=== PATIENT | female | born 1950 | race Caucasian/White ===

== ENCOUNTER 2017-01-11 07:50 | Emergency (ER) | payer OTHER ==
[~2017-01-11] VITALS: Ht 162.5 cm; Wt 61.2 kg
[~2017-01-11 07:50] MED LIST: 'XANAX0.25 MG PO; ACCUNEB 0.1.25 MG/1 INH; ACCUNEB 0.1.25 MG/3 NEB; ACTONEL5 MG; ADVAIR DISKUS 51 DSK INH; ADVAIR DISKUS1 DS1 IH; AZITHROMYCIN250 MG PO; BENTYL10 MG PO; DUONEB 3 MG/3 ML3 M1 INH; HYDROCODONE BIT1 T11 PO; LASIX20 MG PO; LEVOFLOXACIN500 MG PO; LISINOPRIL5 MG PO; MACROBID100 M1 PO; MEDROL DOSEPAK4 MG PO; MOOD STABALIZER; NORCO 5-325 TA1 EACH PO; PERCOCET 325 MG1 TA2 PO; POTASSIUM99 M4 PO; PREDNICOT20 MG PO; PREDNISONE10 MG PO; PRILOSEC20 MG PO; TRAZODONE50 MG PO; XANAX0.25 MG PO; ZOFRAN4 MG PO
[2017-01-11 08:33] LABS: BASO # 0.1 10*3/uL (0.0-0.1); BASO % 0.5 % (0.0-1.0); EOS % 0.1 % (1.0-4.0); HEMATOCRIT 34.2 % (37.0-47.0); LYMPH % 10.1 % (27.0-41.0); MEAN CELL VOLUME 96.6 fl (81.0-99.0); MEAN CORPUSCULAR HGB 33.9 pg (27.0-31.0); MEAN CORPUSCULAR HGB CONC 35.1 g/dl (33.0-37.0); MEAN PLATELET VOLUME 9.2 fl (9.6-12.3); MONO % 10.3 % (3.0-9.0); NEUT # 7.5 10*3/uL (2.3-7.9); NEUT % 78.6 % (47.0-73.0); PLATELET COUNT AUTOMATED 291 10*3/uL (130-400); RED BLOOD COUNT 3.54 10*6/uL (4.10-5.10); RED CELL DISTRI WIDTH 12.5 % (0-14.5); WHITE BLOOD COUNT 9.5 10*3/uL (4.8-10.8)
[2017-01-11 08:49] LABS: ALKALINE PHOSPHATASE 72 U/L (45-117); BILIRUBIN, TOTAL 0.4 mg/dl (0.2-1.0); BUN 5 mg/dl (7-24); CARBON DIOXIDE 24 mmol/L (21-32); CHLORIDE 99 mmol/L (98-107); CKMB 2.1 ng/ml (0.5-3.6); EST GLOM FILT AFRICAN AMERICAN > 60 ml/min; GLUCOSE 82 mg/dL (65-99); SGOT/AST 26 IU/L (3-35); SGPT/ALT 22 U/L (12-78); SODIUM 134 mmol/L (136-145); TOTAL PROTEIN 7.7 gm/dL (6.4-8.2)
[2017-01-11 08:50] LABS: TROPONIN I < 0.015 ng/ml (<0.045)
[2017-01-11 08:51] LABS: CPK 97 U/L (26-192)
== END 2017-01-11 11:21 | disposition left against medical advice (07) ==
LOC: ED 07:50
PROVIDERS: Internal Medicine
DX: R55 Syncope and collapse (principal); Z88.2 Allergy status to sulfonamides; Z79.899 Other long term (current) drug therapy

== ENCOUNTER → 2017-05-24 | Day surgery (SDC) | payer OTHER ==
[~2017-05-24] VITALS: Ht 162.5 cm; Wt 61.2 kg
[~2017-05-24] MED LIST changes: +LAMOTRIGINE25 M1 PO
--- NOTE | ~2017-05-24 | PROC NOTE ---
[place], [place] PROCEDURE NOTE NAME: DENNIS ALARCON UNIT #: [id number] ROOM: DOCTOR: ADÁN MONTERO MD BIRTHDATE: [birth year] DOS: 05/24/2017 PREOPERATIVE DIAGNOSES: History of rectal cancer, history of colon polyps. POSTOPERATIVE DIAGNOSIS: Normal colon. PROCEDURE: Colonoscopy. ENDOSCOPIST: Adán Montero MD BAND CUTTING MACHINE OPERATOR: MS3. ANESTHESIA: MAC. INDICATIONS: This is a 66-year-old lady who has got a history of previous rectal cancer, which was treated with chemotherapy and radiation and also polyps that were removed in the past, who is here for the above-mentioned procedure. The procedure and its complications were explained to the patient in detail preoperatively. Complications that were discussed included but were not limited to bleeding, missed lesions and colon perforation. She agreed to proceed. DESCRIPTION OF PROCEDURE: After identifying the patient, the patient was brought to the endoscopy suite and placed in a left lateral position. After IV sedation was administered, a timeout procedure was called. A digital rectal exam was performed, which was within normal limits. An adult colonoscope was now introduced into the anal canal and advanced sequentially into the rectum, sigmoid colon, descending colon, transverse colon and ascending colon up to the cecum. Upon reaching the cecum, the scope was withdrawn. Total withdrawal time was approximately 6 minutes and 45 seconds. The entire colon was found to be within normal limits without any evidence of polyps and the rectal area also was visualized and there was no evidence of any kind of mucosal abnormality. The scope was withdrawn and the patient was taken to the recovery room in stable fashion. There were no complications. Dr. Adán Montero, the attending endoscopist, was present throughout the operating case. Based on these findings, the patient is recommended to have another colonoscopy in the next 3 years. [place], [place] PROCEDURE NOTE NAME: DENNIS ALARCON UNIT #: [id number] ROOM: DOCTOR: ADÁN MONTERO MD BIRTHDATE: [birth year] Adán Montero MD CM:PROCNOTE:PROCEDURE NOTE [id number] ADÁN MONTERO MD
[2017-05-24 07:50] VITALS: BP 138/72
[2017-05-24 08:48] VITALS: BP 112/59
[2017-05-24 09:03] VITALS: BP 97/60
[2017-05-24 09:18] VITALS: BP 114/80
== END | disposition home or self-care (01) ==
LOC: SDC 05-23 14:45
DX: Z09 Encounter for follow-up examination after completed treatment for conditions other than malignant neoplasm (principal); Z87.19 Personal history of other diseases of the digestive system; Z85.048 Personal history of other malignant neoplasm of rectum, rectosigmoid junction, and anus; J44.9 Chronic obstructive pulmonary disease, unspecified; Z98.890 Other specified postprocedural states; Z87.891 Personal history of nicotine dependence

== ENCOUNTER → 2017-10-09 | Outpatient (CLI) | payer OTHER | END | disposition home or self-care (01) | LOC: MAMMO 10:11 | DX: Z12.31 Encounter for screening mammogram for malignant neoplasm of breast (principal); M81.0 Age-related osteoporosis without current pathological fracture; N95.9 Unspecified menopausal and perimenopausal disorder; Z87.891 Personal history of nicotine dependence ==

== ENCOUNTER 2018-05-15 16:38 | Emergency (ER) | payer OTHER ==
[~2018-05-15] VITALS: Ht 162.5 cm; Wt 65.8 kg
[2018-05-15] MEDS ORDERED: Motrin,Rufen800 MG PO (18:57)
== END 2018-05-15 19:18 | disposition home or self-care (01) ==
LOC: ED 16:38
DX: M11.242 Other chondrocalcinosis, left hand (principal); Z88.2 Allergy status to sulfonamides; Z79.899 Other long term (current) drug therapy

== ENCOUNTER → 2019-04-01 | Outpatient (CLI) | payer OTHER ==
[~2019-04-01] MED LIST changes: +Motrin,Rufen800 MG PO
== END | disposition home or self-care (01) ==
LOC: MAMMO 09:56
DX: Z12.31 Encounter for screening mammogram for malignant neoplasm of breast (principal); M81.0 Age-related osteoporosis without current pathological fracture

== ENCOUNTER 2019-08-30 12:40 | Emergency (ER) | payer OTHER ==
[~2019-08-30] VITALS: Ht 162.5 cm; Wt 70.3 kg
[2019-08-30] MEDS ORDERED: MEDROL DOSEPAK4 MG PO (13:02)
== END 2019-08-30 13:09 | disposition home or self-care (01) ==
LOC: ED 12:40
DX: M54.41 Lumbago with sciatica, right side (principal); J44.9 Chronic obstructive pulmonary disease, unspecified; Z88.2 Allergy status to sulfonamides; Z79.899 Other long term (current) drug therapy

== ENCOUNTER 2019-09-12 10:56 | Inpatient (IN) | payer OTHER ==
[~2019-09-12] VITALS: Ht 162.5 cm; Wt 70.3 kg
[2019-09-12 10:59] VITALS: BP 138/63
--- NOTE | 2019-09-12 12:59 | NUR ---
PT REPORTS ZERO IMPROVEMENT IN PAIN SINCE MEDICATIONS ADMINISTERED.
--- NOTE | 2019-09-12 13:40 | NUR ---
PT NOW STATES SHE DOES THINK HER PAIN IS MUCH BETTER DESPITE NO SECOND MED DOSING. ADMISSION PENDING.
--- NOTE | 2019-09-12 14:12 | NUR ---
MSTime: 1400 A 69 year old FEMALE admitted to 5E under services of RYLIE GOFF DO. Pt. arrived via ambulance from ER. Chief complaint: LOW BACK PAIN. BARBARA ROSS
[2019-09-12 14:29] VITALS: BP 138/80
[2019-09-12] MEDS ORDERED: VITAMIN D31000 UNI1 PO (14:39)
[2019-09-12] MEDS ORDERED: METOPROLOL SUCC50 M1 PO (14:40)
[2019-09-12] MEDS ORDERED: WOMEN MULTIVIT1 EACH PO (14:41)
[2019-09-12] MEDS ORDERED: ANORO ELLIPTA1 EACH INH (14:42)
--- NOTE | 2019-09-12 15:00 | NUR ---
MEDS UPDATED PER POLICY
--- NOTE | 2019-09-12 15:04 | NUR ---
IN TO SEE PATIENT.
[2019-09-12 15:17] LABS: HEMATOCRIT 33.4 % (37.0-47.0); HEMOGLOBIN 11.2 g/dl (12.0-16.0); MEAN CELL VOLUME 103.1 fl (81.0-99.0); MEAN CORPUSCULAR HGB 34.6 pg (27.0-31.0); MEAN CORPUSCULAR HGB CONC 33.5 g/dl (33.0-37.0); MEAN PLATELET VOLUME 9.7 fl (9.6-12.3); PLATELET COUNT AUTOMATED 275 10*3/uL (130-400); RED BLOOD COUNT 3.24 10*6/uL (4.10-5.10); RED CELL DISTRI WIDTH 13.6 % (0-14.5); WHITE BLOOD COUNT 9.9 10*3/uL (4.8-10.8)
[2019-09-12 15:34] LABS: ALBUMIN 3.2 gm/dl (3.1-4.5); ALKALINE PHOSPHATASE 156 U/L (45-117); BUN 8 mg/dl (7-24); CHLORIDE 101 mmol/L (98-107); CREATININE 0.65 mg/dL (0.55-1.02); POTASSIUM 4.4 mmol/L (3.5-5.1); SGOT/AST 36 IU/L (3-35); SGPT/ALT 42 U/L (12-78); SODIUM 133 mmol/L (136-145); TOTAL PROTEIN 7.4 gm/dL (6.4-8.2)
[2019-09-12 15:38] LABS: PLATELET SUFFICIENCY NORMAL (NORMAL); TOTAL CELLS COUNTED 100 #CELLS; VACUOLATION OF NEUTROPHILS SLIGHT
[2019-09-12 16:00] VITALS: BP 135/76
--- NOTE | 2019-09-12 17:45 | NUR ---
PT GIVEN PO NORCO PER PRN ORDER FOR C/O LOWER BACK PAIN, RADIATING DOWN THIGHS. WILL MONITOR EFFECTIVENESS.
--- NOTE | 2019-09-12 19:16 | NUR ---
24 HR CHART CHECK COMPLETE
[2019-09-12 20:00] VITALS: BP 109/58
[2019-09-13] VITALS: BP 113/65
--- NOTE | 2019-09-13 03:30 | NUR ---
PT IS ASLEEP AT THIS TIME. NO S/S OF DISTRESS NOTED. RESPS ARE EASY AND NONLABORED. WILL CONTINUE TO MONITOR.
--- NOTE | 2019-09-13 05:28 | NUR ---
PT MEDICATED WITH PRN NORCO FOR C/O PAIN RATED A 5/10. WILL MONITOR FOR EFFECTIVESS.
[2019-09-13 06:25] LABS: HEMATOCRIT 32.3 % (37.0-47.0); HEMOGLOBIN 10.9 g/dl (12.0-16.0); MEAN CELL VOLUME 103.9 fl (81.0-99.0); MEAN CORPUSCULAR HGB CONC 33.7 g/dl (33.0-37.0); MEAN PLATELET VOLUME 9.7 fl (9.6-12.3); PLATELET COUNT AUTOMATED 283 10*3/uL (130-400); RED BLOOD COUNT 3.11 10*6/uL (4.10-5.10); RED CELL DISTRI WIDTH 13.8 % (0-14.5); WHITE BLOOD COUNT 11.7 10*3/uL (4.8-10.8)
[2019-09-13 06:53] LABS: ACT PARTIAL THROMBO TIME 32.2 SECONDS (20.0-32.1)
[2019-09-13 06:58] LABS: ALBUMIN 2.9 gm/dl (3.1-4.5); ALKALINE PHOSPHATASE 146 U/L (45-117); BUN 10 mg/dl (7-24); CHLORIDE 102 mmol/L (98-107); FREE T4 0.78 ng/dl (0.76-1.46); PHOSPHOROUS 2.6 mg/dL (2.5-4.9); POTASSIUM 3.8 mmol/L (3.5-5.1); SGOT/AST 26 IU/L (3-35); SGPT/ALT 35 U/L (12-78); SODIUM 133 mmol/L (136-145)
--- NOTE | 2019-09-13 07:00 | NUR ---
BRONSONCO EFFECTIVE PER PT. WILL CONTINUE TO MONITOR. CALL LIGHT WITHIN REACH.
[2019-09-13 07:05] LABS: TOTAL CELLS COUNTED 100 #CELLS
[2019-09-13 07:20] LABS: PLATELET SUFFICIENCY NORMAL (NORMAL); POLYCHROMASIA SLIGHT
[2019-09-13 08:00] VITALS: BP 115/51
--- NOTE | 2019-09-13 08:24 | NUR ---
NOTIFIED REGARDING PATIENT REQUESTING HOME MEDICATIONS TO BE ORDERED. PHYSICIAN TO ENTER ORDERS.
[2019-09-13 09:17] LABS: VITAMIN D, 25-HYDROXY 33.3 ng/mL (30-100)
[2019-09-13 12:00] VITALS: BP 111/40
[2019-09-13 16:00] VITALS: BP 112/50
--- NOTE | 2019-09-13 17:05 | NUR ---
NORCO GIVEN PER PRN ORDER FOR C/O SACRAL PAIN. RATES PAIN 5/10. WILL MONITOR EFFECTIVENESS.
--- NOTE | 2019-09-13 18:51 | NUR ---
NORCO RELIEVING PAIN PER PT. WILL CONTINUE TO MONITOR.
[2019-09-13 20:00] VITALS: BP 115/60
--- NOTE | 2019-09-13 21:47 | NUR ---
PT TOOK SCHEDULED MEDICATIONS WITHOUT DIFFICULTY. NO NEEDS VOICED AT THIS TIME. WILL MONITOR. CALL LIGHT IN REACH.
[2019-09-14] VITALS: BP 124/62
--- NOTE | 2019-09-14 04:17 | NUR ---
PT ASLEEP IN BED. RESPIRATIONS EASY. NO S/S OF DISTRESS NOTED. WILL MONITOR. CALL LIGHT IN REACH.
--- NOTE | 2019-09-14 07:50 | NUR ---
PT RESTING IN BED. NO DISTRESS NOTED. WILL MONITOR
[2019-09-14 08:00] VITALS: BP 128/71
--- NOTE | 2019-09-14 11:50 | NUR ---
Occupational Therapy evaluation completed on 5 with full eval to follow Precautions include fall risk,bilateral sacral fractures, cooney, osteoporosis,moderate complexity level 48641. Recommend OT per POC and SNF to enable return home to split level home w/5 steps to enter and 5 steps to patient's living area. Thank you. Madonna Cadena OTR/l
--- NOTE | 2019-09-14 12:25 | NUR ---
PT MEDICATED WITH NORCO FOR C/O GEBN PAIN PT RATES PAIN 02/23 WILL MONITOR
--- NOTE | 2019-09-14 12:37 | NUR ---
Surgical Clinical Reviewer in to talk to patient. Patient states lives at home with her . There are approximately 10 steps in the home. Physician: Marky Hanson Pharmacy: [facility] Home health services: None Patient's level of ADLs: INDEPENDENT Patient has working utilities: Yes DME: Home Oxygen, Walker (Husbands from [facility]) Follow-up physician's appointment after d/c: Will be made by Hospital Does patient want to access PORTAL?: No Discharge plan discussed with the patient. Patient stated she lives in a split home with her . Patient stated there are approximately 10 steps in her home. Patient stated that she is independent with ADLs/IADLs. Patient does drive. Patient reported she is not able get into her bath/shower therefore she sponge bathes herself. Patient stated she does wear home Oxygen at night time only. When the patient was asked about SNF vs HHC. Patient stated she will do whatever is recommended. Patient stated she [facility]ES NOT want [facility] Patient stated she would prefer [facility] or [facility]. [facility] is out of Network. Referral will be sent to [facility]. Surgical Clinical Reviewer Lindsey has been notified. Case Management to follow. EDY EDWARDS
--- NOTE | 2019-09-14 13:33 | NUR ---
PHYSICAL THERAPY Leslie completed full report to follow moderate level of complexity 74911 recomend SNF at discharge PT to work on transfers, marika quick AD, balance/safety Yesika Blue PT
--- NOTE | 2019-09-14 14:00 | NUR ---
RODRIGUEZ REMOVED ORDERED
--- NOTE | 2019-09-14 14:00 | NUR ---
[facility] WILL [facility]
--- NOTE | 2019-09-14 15:00 | NUR ---
AIR POLLUTION INSPECTOR faxed referral to [facility] and [facility] for review. [facility] is able to accept the patient, however, patient has Out of Network Benefits that would cover the same as in network. Complete referral was faxed to [facility]. -KAREY José
[2019-09-14 16:00] VITALS: BP 121/45
--- NOTE | 2019-09-14 17:00 | NUR ---
PT MEDICATED WITH NORCO FOR C/O GEN PAIN PT RATES PAIN 03/25 WILL MONITOR
--- NOTE | 2019-09-14 18:05 | NUR ---
[facility] HEL[facility] WILL MONITOR
--- NOTE | 2019-09-14 19:35 | NUR ---
PT AWAKE IN BED. DENIES ANY NEEDS AT PRESENT TIME. WILL MONITOR. CALL LIGHT IN REACH.
[2019-09-14 20:00] VITALS: BP 109/53
[2019-09-15] VITALS: BP 124/58
--- NOTE | 2019-09-15 00:22 | NUR ---
PT ASLEEP IN BED. RESPIRATIONS EASY. NO S/S OF DISTRESS NOTED. WILL MONITOR. CALL LIGHT IN REACH.
--- NOTE | 2019-09-15 02:14 | NUR ---
PT ASLEEP IN BED. NO S/S OF DISTRESS NOTED. WILL MONITOR.
--- NOTE | 2019-09-15 04:17 | NUR ---
PT ASSISTED UP TO BATHROOM AND BACK INTO BED. PATIENT MEDICATED WITH PO NORCO FOR C/O LOWER BACK/THIGH PAIN RATED 5/10. PATIENT ALSO MEDICATED WITH LAMICTAL SCHEDULED FOR 0600 PER REQUEST. STATES IF SHE FALLS ASLEEP, SHE DOES NOT WANT TO BE WOKEN UP. WILL MONITOR. CALL LIGHT IN REACH. BED ALARM INTACT.
[2019-09-15 08:00] VITALS: BP 142/70
--- NOTE | 2019-09-15 08:13 | NUR ---
PT REQUESTED AND RECEIVED PO NORCO PER PRN ORDER FOR C/O LOWER BACK PAIN. RATES PAIN 04/25. WILL MONITOR EFFECTIVENESS.
--- NOTE | 2019-09-15 09:30 | NUR ---
NORCO RELIEVING PAIN PER PT. WILL CONTINUE TO MONITOR.
--- NOTE | 2019-09-15 09:50 | NUR ---
OT NOTE Pt was seen this A.M. 1:1 for 15 minute OT session. Upon arrival pt was supine in bed. Pt identified by name and and had complaints of 8/10 low back pain. Pt was educated on log roll technique for good back protection with bed mobility. Pt was able to transfer supine to sit EOB with Hay for assist with UB and presented with good carry over of log roll. Pt completed sit to stand transfer from bed level with CGA and use of w/w for UE support. Functional mobility completed into the bathroom with CGA and use of w/w. There she transferred on/off standard commode with CGA and use of grab bar for UE support. Clothing management completed with SBA. Pt was educated on back protection techniques for toilet hygiene, pt verbalized understanding. She then stood sink side while washing her hands and completing hair care with CGA for safety. Pt then transferred back into bed sit to supine with SBA and good back protection, however required maxA X 2 for repositioning in bed due to pain. There she was left with call light in hand, tray table in place, and bed alarm activated for safety. COntinue with rec D/C plan to SNF. COLLIN Ng/Ivan
--- NOTE | 2019-09-15 10:05 | NUR ---
PHYSICAL THERAPY TREATMENT TIME: 09:35 AM - 09:50 AM Patient presented to therapy in supine with head of bed elevated and report of 8/10 pain in the low back and LEs. Patient identified by name and on wristband. Patient gives informed consent for treatment. Patient performed log roll to the L side and used railing of BED with R hand and L elbow to assist with sitting upright at EOB. Patient required MIN A X 1 to transfer from side-lying to sitting at EOB. Patient sat on EOB with SBA. Patient sit to stand from EOB with MIN A X 1. Patient ambulated 50' x 1 with Wh Walker and CGA X 1 with no LOB and good turning technique. Patient transferred back to supine in bed with SBA. Patient required draw sheet to move her up to head of bed with MAX A X 2. Patient was left in supine in bed with head of bed elevated and call light within reach. Bed alarm was activated. Patient was 1:1 with this BDR for 15 minutes total. FIONA HERNANDEZ BDR
--- NOTE | 2019-09-15 11:46 | NUR ---
PRECERT is pending. PEN MAKER faxed updates to [facility]. -KAREY José
[2019-09-15 12:00] VITALS: BP 117/64
--- NOTE | 2019-09-15 12:52 | NUR ---
PATIENT REQUESTING MEDICATION FOR HIP AND BACK PAIN RATED 9/10 ON 0/10 SCALE. NORCO ADMINISTERED PRESCRIBED. WILL MONITOR FOR EFFECTIVENESS.
--- NOTE | 2019-09-15 13:20 | NUR ---
PRECERT is Pending. -KAREY José
--- NOTE | 2019-09-15 14:00 | NUR ---
NORCO RELIEVING PAIN PER PT. WILL CONTINUE TO MONITOR.
[2019-09-15 16:00] VITALS: BP 120/54
--- NOTE | 2019-09-15 17:22 | NUR ---
PT MEDICATED WITH PO NORCO PER PRN ORDER FOR C/O LOWER BACK PAIN. WILL MONITOR EFFECTIVENESS.
[2019-09-15 20:00] VITALS: BP 113/83
--- NOTE | 2019-09-15 21:03 | NUR ---
PT DENIES ANY NEEDS AT PRESENT TIME. WILL MONITOR. CALL LIGHT IN REACH. BED ALARM INTACT.
--- NOTE | 2019-09-15 22:28 | NUR ---
PO NORCO AND PO RESTORIL ADMINISTERED PER REQUEST FOR C/O THROBBING PAIN IN BLL RATED 9/10 AND INSOMNIA. WILL MONITOR EFFECTIVENESS. CALL LIGHT IN REACH.
[2019-09-16] VITALS: BP 116/50
--- NOTE | 2019-09-16 04:07 | NUR ---
PT ASLEEP IN BED. RESPIRATIONS EASY. NO S/S OF DISTRESS NOTED. WILL MONITOR. CALL LIGHT IN REACH. BED ALARM INTACT.
--- NOTE | 2019-09-16 05:37 | NUR ---
PT MEDICATED WITH PO NORCO PER PRN ORDER FOR C/O BACK/HIP PAIN RATED 8/10. PT ASSISTED UP TO BATHROOM AND BACK INTO BED. ASSISTED TO REPOSITION FOR COMFORT. WILL MONITOR. CALL LIGHT IN REACH. BED ALARM INTACT.
[2019-09-16 06:01] LABS: BASO # 0.1 10*3/uL (0.0-0.1); BASO % 0.8 % (0.0-1.0); EOS # 0.1 10*3/uL (0.0-0.4); HEMATOCRIT 31.5 % (37.0-47.0); HEMOGLOBIN 10.4 g/dl (12.0-16.0); LYMPH # 1.3 10*3/uL (1.3-4.4); LYMPH % 19.4 % (27.0-41.0); MEAN CELL VOLUME 106.1 fl (81.0-99.0); MEAN PLATELET VOLUME 9.5 fl (9.6-12.3); MONO # 0.9 10*3/uL (0.1-1.0); MONO % 13.8 % (3.0-9.0); NEUT # 4.2 10*3/uL (2.3-7.9); NEUT % 63.4 % (47.0-73.0); PLATELET COUNT AUTOMATED 276 10*3/uL (130-400); RED BLOOD COUNT 2.97 10*6/uL (4.10-5.10); RED CELL DISTRI WIDTH 14.1 % (0-14.5); WHITE BLOOD COUNT 6.6 10*3/uL (4.8-10.8)
[2019-09-16 06:15] LABS: BUN 8 mg/dl (7-24); CHLORIDE 104 mmol/L (98-107); CREATININE 0.55 mg/dL (0.55-1.02); POTASSIUM 3.9 mmol/L (3.5-5.1); SODIUM 138 mmol/L (136-145)
--- NOTE | 2019-09-16 07:15 | NUR ---
EARLIER MEDICATION APPEARS EFFECTIVE. PT ASLEEP. WILL MONITOR. CALL LIGHT IN REACH. BED ALARM INTACT.
[2019-09-16 08:00] VITALS: BP 122/64
--- NOTE | 2019-09-16 08:16 | NUR ---
PT RESTING IN BED. NO DISTRESS NOTED. WILL MONITOR
--- NOTE | 2019-09-16 09:53 | NUR ---
PT REQUESTED AND GIVEN NORCO FOR C/O. BACK PAIN . PT RATES PAIN 7/10 WILL MONITOR
--- NOTE | 2019-09-16 10:44 | NUR ---
PHYSICAL THERAPY TREATMENT TIME: 08:50 AM - 09:05 Patient presented to therapy in supine with head of bed elevated and report of L LE PAIN in wt bearing of 8/10. Patient gives informed consent for treatment. Patient was identified by name and on wristband. Patient performed log rolling to the L side with MIN A X 1. Patient transferred L SIDE-LYING to sitting at EOB with MIN A X 1. Patient sat on EOB with SBA. Patient sit to stand from EOB with MIN A X 1. Patient ambulated with Wh Walker and CLOSE SUPERVISION for 50' x 1 with no LOB and 8/10 pain in the L LE. Patient transferred back to supine in bed MIN A X 1 with log rolling to supine. Patient is not on spO2. Patient was left in supine in bed with head of bed elevated, call light within reach and bed alarm activated. Patient was 1:1 with this NURSING HOME AIDE for 15 minutes total. FIONA HERNANDEZ NURSING HOME AIDE
--- NOTE | 2019-09-16 10:46 | NUR ---
ADELE HELPED PER PT
[2019-09-16 12:00] VITALS: BP 129/69
--- NOTE | 2019-09-16 14:52 | NUR ---
PT REQUESTED AND GIVEN NORCO FOR C/O LEG PAIN PT RATES PAIN 8/10 WILL MONITOR
[2019-09-16 16:00] VITALS: BP 137/71
--- NOTE | 2019-09-16 16:35 | NUR ---
NORCO HELPED PER PT WILL MONITOR
[2019-09-16 20:00] VITALS: BP 154/81
--- NOTE | 2019-09-16 20:10 | NUR ---
PT RESTING IN BED. RESP-EASY AND REGULAR. C/O BILATERAL LEG PAIN L>R , RATES PAIN 8 ON PAIN SCALE 0-10. MEDICATED WITH NORCO PO PER PRN ORDER, SEE EMAR. CALL LIGHT IN REACH. WILL CON'T TO MONITOR.
--- NOTE | 2019-09-16 21:56 | NUR ---
PT TOLERATED ROUTINE MED WITH NO PROBLEM. REQUESTING SLEEPING PILL. MEDICATED WITH RESTORIL PO PER PRN ORDER, SEE EMAR. PT STATES PAIN MEDICATION HELPED. CALL LIGHT IN REACH.
[2019-09-17] VITALS: BP 135/71
--- NOTE | 2019-09-17 00:10 | NUR ---
PT RESTING IN BED WITH EYES CLOSED. RESP-EASY AND REGULAR. CALL LIGHT IN REACH. SEE SHIFT ASSESSMENT.
--- NOTE | 2019-09-17 04:50 | NUR ---
PT C/O BILATERAL LEG PAIN L>R, RATES PAIN 5 ON PAIN SCALE 0-10. MEDICATED WITH NORCO PO PER PRN ORDER, SEE EMAR. CALL LIGHT IN REACH.
--- NOTE | 2019-09-17 05:45 | NUR ---
RESTING IN BED WITH EYES CLOSED. RESP-EASY AND REGULAR. MEDICATION SEEMS TO BE EFFECTIVE. CALL LIGHT IN REACH.
--- NOTE | 2019-09-17 07:56 | NUR ---
PRECERT has been obtained. Patient can go to [facility] today if medically stable. FENDER FINISHER to notify RN Hosptialist Coordinator Dia. -KAREY José
[2019-09-17 08:00] VITALS: BP 140/81
--- NOTE | 2019-09-17 08:27 | NUR ---
PT RESTING IN BED. NO DISTRESS NOTED. WILL MONITOR
--- NOTE | 2019-09-17 08:40 | NUR ---
Approached patient for OT services this am but pt declined due to "pain & not feeling well". Will attempt OT another time or date. Call light was within reach. Continue with OT POC. Jenny SINGLETON/Ivan
--- NOTE | 2019-09-17 08:51 | NUR ---
PHYSICAL THERAPY Patient declined therapy session this morning due ot not feeling well and having severe pain in the L LE. NURSING INFORMED. Will check back later. FIONA HERNANDEZ FEED IN WORKER
--- NOTE | 2019-09-17 09:03 | NUR ---
PT REQUESTED AND GIVEN NORCO FOR C/O BILATERAL LEG PAIN AND BACK PAIN PT RATES PAIN 04/25 WILL MONITOR
--- NOTE | 2019-09-17 10:30 | NUR ---
[facility]
--- NOTE | 2019-09-17 10:40 | NUR ---
TURNER SPLITTER MACHINE OPERATOR completed HENs. -KAREY José
[2019-09-17] MEDS ORDERED: Nystatin 100,000 UNI PO (12:25)
[2019-09-17] MEDS ORDERED: INCRUSE ELLI62.5 MCG INH (12:25)
[2019-09-17] MEDS ORDERED: NORCO 5-325 TA1 EACH PO (12:25)
[2019-09-17] MEDS ORDERED: CALCIUM 600 +1 EA11 PO (12:25)
--- NOTE | 2019-09-17 13:11 | NUR ---
PT REQUESTED AND GIVEN NORCO FOR C/O LEG AND BACK PAIN WILL MONITOR
--- NOTE | 2019-09-17 14:35 | NUR ---
Discharge instructions reviewed with patient/family. Patient receptive and verbalizes understanding. Follow-up care arranged. Written instructions given to patient/family. OTILIA WONG
--- NOTE | 2019-09-17 14:35 | NUR ---
REPORT CALLED TO [facility]
--- NOTE | 2019-09-17 16:53 | NUR ---
OCCUPATIONAL THERAPY CO-SIGN I approve of the Occupational Therapy notes written above. OPAL LLOYD OTR/Ivan
--- NOTE | 2019-09-18 08:00 | NUR ---
PHYSICAL THERAPY CO-SIGN I approve of the Physical Therapy notes written above. Yesika Blue PT
== END 2019-09-17 14:35 | disposition other institution (70) | DRG 543 ==
LOC: ED 10:56 → EDHOLD 13:37 → 5E 13:37
PROVIDERS: Hospitalist; Student in an Organized Health Care Education/Training Program; ADMIT Internal Medicine
DX: M80.08XA Age-related osteoporosis with current pathological fracture, vertebra(e), initial encounter for fracture (principal); J44.1 Chronic obstructive pulmonary disease with (acute) exacerbation; E87.1 Hypo-osmolality and hyponatremia; B37.0 Candidal stomatitis; J44.0 Chronic obstructive pulmonary disease with (acute) lower respiratory infection; M54.41 Lumbago with sciatica, right side; K13.0 Diseases of lips; G89.29 Other chronic pain; J20.9 Acute bronchitis, unspecified; D53.9 Nutritional anemia, unspecified; Z85.048 Personal history of other malignant neoplasm of rectum, rectosigmoid junction, and anus; Z92.3 Personal history of irradiation; Z92.21 Personal history of antineoplastic chemotherapy; Z83.6 Family history of other diseases of the respiratory system; Z82.49 Family history of ischemic heart disease and other diseases of the circulatory system; Z79.899 Other long term (current) drug therapy

== ENCOUNTER → 2019-12-29 | Outpatient (CLI) | payer OTHER ==
[~2019-12-29] MED LIST changes: +ANORO ELLIPTA1 EACH INH; +CALCIUM 600 +1 EA11 PO; +INCRUSE ELLI62.5 MCG INH; +METOPROLOL SUCC50 M1 PO; +Nystatin 100,000 UNI PO; +VITAMIN D31000 UNI1 PO; +WOMEN MULTIVIT1 EACH PO
== END | disposition home or self-care (01) ==
LOC: RAD 14:11
DX: M47.812 Spondylosis without myelopathy or radiculopathy, cervical region (principal); M48.061 Spinal stenosis, lumbar region without neurogenic claudication; M43.16 Spondylolisthesis, lumbar region; M48.02 Spinal stenosis, cervical region; M46.02 Spinal enthesopathy, cervical region; R29.2 Abnormal reflex; I70.0 Atherosclerosis of aorta

== ENCOUNTER → 2020-06-21 | Outpatient (CLI) | payer OTHER ==
[2020-06-21 09:50] VITALS: BP 132/71
== END | disposition home or self-care (01) ==
LOC: INJECTION 09:00
PROVIDERS: ATTEND Physician Assistant
DX: M81.0 Age-related osteoporosis without current pathological fracture (principal); J44.9 Chronic obstructive pulmonary disease, unspecified; Z85.048 Personal history of other malignant neoplasm of rectum, rectosigmoid junction, and anus; Z87.891 Personal history of nicotine dependence

== ENCOUNTER 2020-12-25 05:04 | Inpatient (IN) | payer OTHER ==
[2020-12-25] VITALS (13 sets, daily range): BP systolic 82–157; BP diastolic 48–113
[~2020-12-25] VITALS: Ht 160 cm; Wt 67.8 kg
[2020-12-25 05:53] LABS: ALBUMIN 2.5 gm/dl (3.1-4.5); BUN 15 mg/dl (7-24); CHLORIDE 100 mmol/L (98-107); CREATININE 0.76 mg/dL (0.55-1.02); POTASSIUM 3.3 mmol/L (3.5-5.1); SGOT/AST 34 IU/L (3-35); SGPT/ALT 26 U/L (12-78); SODIUM 130 mmol/L (136-145); TOTAL PROTEIN 7.1 gm/dL (6.4-8.2)
[2020-12-25 05:55] LABS: BASO % 0.4 % (0.0-1.0); EOS # 0.1 10*3/uL (0.0-0.4); EOS % 0.7 % (1.0-4.0); HEMATOCRIT 33.7 % (37.0-47.0); LYMPH # 0.5 10*3/uL (1.3-4.4); MEAN CELL VOLUME 102.1 fl (81.0-99.0); MEAN CORPUSCULAR HGB 34.5 pg (27.0-31.0); MEAN CORPUSCULAR HGB CONC 33.8 g/dl (33.0-37.0); MEAN PLATELET VOLUME 9.8 fl (9.6-12.3); MONO # 0.9 10*3/uL (0.1-1.0); MONO % 8.3 % (3.0-9.0); NEUT % 84.5 % (47.0-73.0); PLATELET COUNT AUTOMATED 225 10*3/uL (130-400); RED CELL DISTRI WIDTH 13.1 % (0-14.5); WHITE BLOOD COUNT 10.7 10*3/uL (4.8-10.8)
[2020-12-25 05:56] LABS: ALKALINE PHOSPHATASE 128 U/L (45-117)
[2020-12-25 06:00] LABS: TROPONIN I < 0.015 ng/ml (<0.045)
[2020-12-25 06:11] LABS: ACT PARTIAL THROMBO TIME 39.2 SECONDS (20.0-32.1); INTERNATIONAL NORM RATIO 1.1 (2.0-3.5)
[2020-12-25 08:12] LABS: FREE T4 0.98 ng/dl (0.76-1.46)
[2020-12-25 08:17] LABS: THYROID STIM HORMONE (HS) 3.15 uIU/ml (0.358-4.75)
[2020-12-25] MEDS ORDERED: LEVOTHYROXINE25 MCG PO (10:28)
[2020-12-25] MEDS ORDERED: MACROBID100 M1 PO (10:29)
[2020-12-25 16:53] LABS: BILIRUBIN Negative (Negative); BLOOD Negative (Negative); CLARITY Clear (Clear); COLOR Yellow (Yellow); GLUCOSE Negative (Negative); KETONE Negative (Negative); LEUKO ESTERASE 1+ (Negative); NITRITE Negative (Negative); PH 5.5 (4.5-8.0); UROBILINOGEN 0.2 E.U./dl (0.0-1.0)
[2020-12-25 17:30] LABS: RBC 0-2 rbc/hpf (0-2)
[2020-12-25 17:31] LABS: BACTERIA TRACE
[2020-12-26] VITALS: BP 103/56
[2020-12-26 07:28] LABS: HEMATOCRIT 33.8 % (37.0-47.0); LYMPH # 0.7 10*3/uL (1.3-4.4); LYMPH % 15.7 % (27.0-41.0); MEAN CELL VOLUME 103.7 fl (81.0-99.0); MEAN CORPUSCULAR HGB CONC 32.8 g/dl (33.0-37.0); MEAN PLATELET VOLUME 9.6 fl (9.6-12.3); MONO # 0.1 10*3/uL (0.1-1.0); MONO % 2.6 % (3.0-9.0); NEUT # 3.7 10*3/uL (2.3-7.9); NEUT % 81.3 % (47.0-73.0); PLATELET COUNT AUTOMATED 277 10*3/uL (130-400); RED BLOOD COUNT 3.26 10*6/uL (4.10-5.10); RED CELL DISTRI WIDTH 13.2 % (0-14.5); WHITE BLOOD COUNT 4.6 10*3/uL (4.8-10.8)
[2020-12-26 07:53] LABS: ALBUMIN 2.6 gm/dl (3.1-4.5); ALKALINE PHOSPHATASE 115 U/L (45-117); BUN 14 mg/dl (7-24); CHLORIDE 101 mmol/L (98-107); CHOLESTEROL 127 mg/dL (<200); CREATININE 0.74 mg/dL (0.55-1.02); HDL CHOLESTEROL 78 mg/dl (40-60); LDL CHOLESTEROL 37 mg/dL (9-159); SGOT/AST 18 IU/L (3-35); SGPT/ALT 23 U/L (12-78); SODIUM 135 mmol/L (136-145); TOTAL PROTEIN 7.2 gm/dL (6.4-8.2); TRIGLYCERIDES 62 mg/dl (<150); VLDL CHOLESTEROL 12 mg/dL (6-40)
[2020-12-26 12:00] VITALS: BP 122/69
[2020-12-26 16:00] VITALS: BP 111/64
[2020-12-26 20:00] VITALS: BP 119/74
[2020-12-27] VITALS: BP 139/73
[2020-12-27 08:00] VITALS: BP 121/72
[2020-12-27] MEDS ORDERED: VENTOLIN 02.5 MG/3 M NEB (09:51)
[2020-12-27 12:00] VITALS: BP 112/64
[2020-12-27] MEDS ORDERED: OMNICEF300 MG PO (13:49)
[2020-12-27] MEDS ORDERED: ZITHROMAX500 MG PO (13:49)
[2020-12-27] MEDS ORDERED: XARE20MG PO (13:50)
[2020-12-27] MEDS ORDERED: FLECAINIDE ACE100 M1 PO (13:50)
[2020-12-27] MEDS ORDERED: PREDNISONE10 MG PO (16:23)
== END 2020-12-27 14:47 | disposition home or self-care (01) | DRG 871 ==
LOC: ED 05:04 → EDHOLD 06:31 → 4E 06:31 → EDHOLD 07:49 → 4E 08:56
PROVIDERS: Emergency Medicine; Internal Medicine; ADMIT Internal Medicine; ATTEND Internal Medicine
DX: A41.9 Sepsis, unspecified organism (principal); J96.21 Acute and chronic respiratory failure with hypoxia; E87.1 Hypo-osmolality and hyponatremia; E44.0 Moderate protein-calorie malnutrition; J44.1 Chronic obstructive pulmonary disease with (acute) exacerbation; I48.91 Unspecified atrial fibrillation; D53.9 Nutritional anemia, unspecified; E03.9 Hypothyroidism, unspecified; E87.6 Hypokalemia; R73.9 Hyperglycemia, unspecified; R65.20 Severe sepsis without septic shock; I10 Essential (primary) hypertension; E86.0 Dehydration; M81.0 Age-related osteoporosis without current pathological fracture; I34.0 Nonrheumatic mitral (valve) insufficiency; Z88.2 Allergy status to sulfonamides; Z92.21 Personal history of antineoplastic chemotherapy; Z92.3 Personal history of irradiation; Z85.048 Personal history of other malignant neoplasm of rectum, rectosigmoid junction, and anus; Z82.5 Family history of asthma and other chronic lower respiratory diseases; Z82.49 Family history of ischemic heart disease and other diseases of the circulatory system; Z79.899 Other long term (current) drug therapy; Z68.26 Body mass index [BMI] 26.0-26.9, adult

== ENCOUNTER → 2021-01-27 | Outpatient (CLI) | payer OTHER ==
[~2021-01-27] MED LIST changes: +FLECAINIDE ACE100 M1 PO; +LEVOTHYROXINE25 MCG PO; +OMNICEF300 MG PO; +VENTOLIN 02.5 MG/3 M NEB; +XARE20MG PO; +ZITHROMAX500 MG PO
== END ==
LOC: CT 01-26 09:00
PROVIDERS: ATTEND Nurse Practitioner Primary Care
DX: J43.9 Emphysema, unspecified (principal); R59.9 Enlarged lymph nodes, unspecified; R91.8 Other nonspecific abnormal finding of lung field; J42 Unspecified chronic bronchitis; R06.02 Shortness of breath

== ENCOUNTER → 2021-01-31 | Outpatient (CLI) | payer OTHER ==
[2021-01-31 12:11] VITALS: BP 149/59
== END | disposition home or self-care (01) ==
LOC: INJECTION 01-23 09:00
PROVIDERS: ATTEND Nurse Practitioner Primary Care
DX: M81.0 Age-related osteoporosis without current pathological fracture (principal); J44.9 Chronic obstructive pulmonary disease, unspecified; Z85.048 Personal history of other malignant neoplasm of rectum, rectosigmoid junction, and anus; Z87.891 Personal history of nicotine dependence

== ENCOUNTER → 2021-07-12 | Outpatient (CLI) | payer OTHER | END | disposition home or self-care (01) | LOC: RAD 06-12 10:30 | PROVIDERS: ATTEND Nurse Practitioner Primary Care | DX: Z12.31 Encounter for screening mammogram for malignant neoplasm of breast (principal); M81.0 Age-related osteoporosis without current pathological fracture ==

== ENCOUNTER → 2021-08-15 | Outpatient (CLI) | payer OTHER | END | disposition home or self-care (01) | LOC: MAMMO 14:13 | PROVIDERS: ATTEND Nurse Practitioner Primary Care | DX: R92.1 Mammographic calcification found on diagnostic imaging of breast (principal); R59.0 Localized enlarged lymph nodes ==

== ENCOUNTER 2022-04-03 13:11 | Inpatient (IN) | payer OTHER ==
[~2022-04-03] VITALS: Ht 157.5 cm; Wt 62.1 kg
[2022-04-03] VITALS (7 sets, daily range): BP systolic 92–134; BP diastolic 35–76
[2022-04-03 14:27] LABS: ACT PARTIAL THROMBO TIME 68.1 SECONDS (20.0-32.1)
[2022-04-03 14:29] LABS: CREATININE 3.32 mg/dL (0.55-1.02); TOTAL PROTEIN 6.3 gm/dL (6.4-8.2)
[2022-04-03 14:37] LABS: POTASSIUM 2.1 mmol/L (3.5-5.1)
[2022-04-03 14:39] LABS: INTERNATIONAL NORM RATIO > 9.6 (2.0-3.5)
[2022-04-03 15:31] LABS: HEMATOCRIT 27.2 % (37.0-47.0); MEAN CELL VOLUME 97.8 fl (81.0-99.0); MEAN CORPUSCULAR HGB 34.2 pg (27.0-31.0); MEAN CORPUSCULAR HGB CONC 34.9 g/dl (33.0-37.0); MEAN PLATELET VOLUME 9.6 fl (9.6-12.3); PLATELET COUNT AUTOMATED 32 10*3/uL (130-400); RED BLOOD COUNT 2.78 10*6/uL (4.10-5.10)
[2022-04-03 15:47] LABS: MANUAL DIFF REFLEX YES
[2022-04-03] MEDS ORDERED: VIBRAMYCIN100 MG PO (16:16)
[2022-04-03] MEDS ORDERED: TRELEGY ELLIPT1 EACH IH (16:16)
[2022-04-03] MEDS ORDERED: PROCHLORPERAZIN10 MG PO (16:16)
[2022-04-03] MEDS ORDERED: LEVOTHYROXINE50 MCG PO (16:17)
[2022-04-03 16:51] LABS: DOHLE BODIES MODERATE; PLATELET SUFFICIENCY LOW (NORMAL); POLYCHROMASIA SLIGHT; ROULEAUX SLIGHT; TOTAL CELLS COUNTED 100 #CELLS; TOXIC GRANULATION MODERATE
[2022-04-03 19:55] LABS: BILIRUBIN Negative (Negative); BLOOD Negative (Negative); CLARITY Turbid (Clear); COLOR Dark Yellow (Yellow); GLUCOSE Negative (Negative); KETONE Trace (Negative); LEUKO ESTERASE Trace (Negative); NITRITE Negative (Negative); SPECIFIC GRAVITY 1.015 (1.001-1.030)
[2022-04-03 20:00] LABS: CREATININE 3.08 mg/dL (0.55-1.02); POTASSIUM 2.5 mmol/L (3.5-5.1)
[2022-04-03 20:55] LABS: BACTERIA 1+; YEAST 1+
[2022-04-03] MEDS ORDERED: XARELTO20 M1 PO (22:32)
[2022-04-04] VITALS: BP 103/66
[2022-04-04 05:38] LABS: CREATININE 2.71 mg/dL (0.55-1.02); TOTAL PROTEIN 5.6 gm/dL (6.4-8.2)
[2022-04-04 05:42] LABS: FREE T4 1.45 ng/dl (0.76-1.46); THYROID STIM HORMONE (HS) 1.24 uIU/ml (0.358-4.75)
[2022-04-04 06:24] LABS: HEMATOCRIT 25.6 % (37.0-47.0); MEAN CELL VOLUME 98.1 fl (81.0-99.0); MEAN CORPUSCULAR HGB 34.1 pg (27.0-31.0); MEAN CORPUSCULAR HGB CONC 34.8 g/dl (33.0-37.0); RED BLOOD COUNT 2.61 10*6/uL (4.10-5.10)
[2022-04-04 06:30] LABS: MANUAL DIFF REFLEX YES
[2022-04-04 06:32] LABS: PLATELET COUNT AUTOMATED 23 10*3/uL (130-400)
[2022-04-04 06:36] LABS: INTERNATIONAL NORM RATIO 7.2 (2.0-3.5)
[2022-04-04 07:49] LABS: BASOPHILS 2 % (0-1); TOTAL CELLS COUNTED 100 #CELLS
[2022-04-04 07:50] LABS: BURR CELLS FEW; DOHLE BODIES FEW; PLATELET SUFFICIENCY LOW (NORMAL); POLYCHROMASIA SLIGHT; TOXIC GRANULATION MODERATE
[2022-04-04 08:00] VITALS: BP 91/45
[2022-04-04 12:00] VITALS: BP 107/63
[2022-04-04 16:00] VITALS: BP 106/60
[2022-04-04 20:00] VITALS: BP 92/35
[2022-04-04 22:20] VITALS: BP 90/67
[2022-04-05] VITALS (9 sets, daily range): BP systolic 90–126; BP diastolic 55–71
[2022-04-05 06:09] LABS: CREATININE 2.24 mg/dL (0.55-1.02); POTASSIUM 3.2 mmol/L (3.5-5.1)
[2022-04-05 06:21] LABS: HEMATOCRIT 25.6 % (37.0-47.0); MEAN CORPUSCULAR HGB 34.9 pg (27.0-31.0); MEAN CORPUSCULAR HGB CONC 34.4 g/dl (33.0-37.0); MEAN PLATELET VOLUME 10.6 fl (9.6-12.3); RED BLOOD COUNT 2.52 10*6/uL (4.10-5.10)
[2022-04-05 06:25] LABS: MANUAL DIFF REFLEX YES
[2022-04-05 06:30] LABS: MEAN CELL VOLUME 101.6 fl (81.0-99.0); PLATELET COUNT AUTOMATED 18 10*3/uL (130-400); WHITE BLOOD COUNT 1.9 10*3/uL (4.8-10.8)
[2022-04-05 07:48] LABS: BASOPHILS 1 % (0-1); BURR CELLS FEW; PLATELET SUFFICIENCY LOW (NORMAL); POLYCHROMASIA SLIGHT; SCHISTOCYTES FEW; TOTAL CELLS COUNTED 100 #CELLS; TOXIC GRANULATION SLIGHT
[2022-04-06] VITALS: BP 114/81
[2022-04-06 04:59] LABS: CREATININE 1.92 mg/dL (0.55-1.02); POTASSIUM 3.2 mmol/L (3.5-5.1)
[2022-04-06 06:10] LABS: HEMATOCRIT 24.2 % (37.0-47.0); MEAN CELL VOLUME 101.3 fl (81.0-99.0); MEAN CORPUSCULAR HGB 34.3 pg (27.0-31.0); MEAN CORPUSCULAR HGB CONC 33.9 g/dl (33.0-37.0); MEAN PLATELET VOLUME 10.1 fl (9.6-12.3); RED BLOOD COUNT 2.39 10*6/uL (4.10-5.10)
[2022-04-06 06:19] LABS: PLATELET COUNT AUTOMATED 48 10*3/uL (130-400)
[2022-04-06 06:21] LABS: WHITE BLOOD COUNT 1.7 10*3/uL (4.8-10.8)
[2022-04-06 06:22] LABS: MANUAL DIFF REFLEX YES
[2022-04-06 07:08] LABS: BASOPHILS 1 % (0-1); PLATELET SUFFICIENCY LOW (NORMAL); TOTAL CELLS COUNTED 100 #CELLS
[2022-04-06 08:00] VITALS: BP 90/57
[2022-04-06 10:23] LABS: INTERNATIONAL NORM RATIO > 9.6 (2.0-3.5)
[2022-04-06 12:30] VITALS: BP 85/51
[2022-04-06 16:00] VITALS: BP 94/60
[2022-04-06 20:00] VITALS: BP 95/61
[2022-04-07] VITALS: BP 143/57
[2022-04-07 04:00] VITALS: BP 100/58
[2022-04-07 06:18] LABS: HEMATOCRIT 24.9 % (37.0-47.0); MEAN CELL VOLUME 101.6 fl (81.0-99.0); MEAN CORPUSCULAR HGB 33.9 pg (27.0-31.0); MEAN CORPUSCULAR HGB CONC 33.3 g/dl (33.0-37.0); MEAN PLATELET VOLUME 10.2 fl (9.6-12.3); PLATELET COUNT AUTOMATED 43 10*3/uL (130-400); RED BLOOD COUNT 2.45 10*6/uL (4.10-5.10); WHITE BLOOD COUNT 3.4 10*3/uL (4.8-10.8)
[2022-04-07 06:20] LABS: CREATININE 1.73 mg/dL (0.55-1.02); MANUAL DIFF REFLEX YES; POTASSIUM 3.8 mmol/L (3.5-5.1); TOTAL PROTEIN 5.5 gm/dL (6.4-8.2)
[2022-04-07 06:30] LABS: INTERNATIONAL NORM RATIO > 9.6 (2.0-3.5)
[2022-04-07 07:04] LABS: ATYPICAL LYMPHS 1 % (0-0); TOTAL CELLS COUNTED 100 #CELLS
[2022-04-07 07:05] LABS: BURR CELLS FEW; PLATELET SUFFICIENCY LOW (NORMAL); POLYCHROMASIA SLIGHT
[2022-04-07 07:06] LABS: DOHLE BODIES FEW; TOXIC GRANULATION MODERATE
[2022-04-07 08:00] VITALS: BP 91/49
[2022-04-07 12:00] VITALS: BP 119/64
[2022-04-07 16:00] VITALS: BP 106/95
[2022-04-07 20:00] VITALS: BP 104/62
[2022-04-08] VITALS: BP 111/63
[2022-04-08 06:05] LABS: HEMATOCRIT 24.9 % (37.0-47.0); MEAN CELL VOLUME 104.6 fl (81.0-99.0); MEAN CORPUSCULAR HGB 34.5 pg (27.0-31.0); MEAN CORPUSCULAR HGB CONC 32.9 g/dl (33.0-37.0); MEAN PLATELET VOLUME 10.2 fl (9.6-12.3); PLATELET COUNT AUTOMATED 33 10*3/uL (130-400); RED BLOOD COUNT 2.38 10*6/uL (4.10-5.10); RED CELL DISTRI WIDTH 12.5 % (0-14.5); WHITE BLOOD COUNT 3.7 10*3/uL (4.8-10.8)
[2022-04-08 06:13] LABS: MANUAL DIFF REFLEX YES
[2022-04-08 06:17] LABS: POTASSIUM 3.9 mmol/L (3.5-5.1)
[2022-04-08 06:25] LABS: CREATININE 1.56 mg/dL (0.55-1.02); TOTAL PROTEIN 5.1 gm/dL (6.4-8.2)
[2022-04-08 06:26] LABS: INTERNATIONAL NORM RATIO > 9.6 (2.0-3.5)
[2022-04-08 06:45] LABS: POLYCHROMASIA SLIGHT; TOTAL CELLS COUNTED 100 #CELLS; TOXIC GRANULATION MODERATE
[2022-04-08 06:46] LABS: BURR CELLS FEW; PLATELET SUFFICIENCY LOW (NORMAL); ROULEAUX SLIGHT
[2022-04-08 08:00] VITALS: BP 107/60
[2022-04-08 12:00] VITALS: BP 124/78
[2022-04-08 16:00] VITALS: BP 95/80
[2022-04-08 20:00] VITALS: BP 111/84
[2022-04-09] VITALS: BP 118/52
[2022-04-09 06:22] LABS: HEMATOCRIT 25.4 % (37.0-47.0); MEAN CELL VOLUME 103.7 fl (81.0-99.0); MEAN CORPUSCULAR HGB 33.9 pg (27.0-31.0); MEAN CORPUSCULAR HGB CONC 32.7 g/dl (33.0-37.0); MEAN PLATELET VOLUME 11.4 fl (9.6-12.3); PLATELET COUNT AUTOMATED 41 10*3/uL (130-400); RED BLOOD COUNT 2.45 10*6/uL (4.10-5.10); RED CELL DISTRI WIDTH 12.8 % (0-14.5); WHITE BLOOD COUNT 3.2 10*3/uL (4.8-10.8)
[2022-04-09 06:48] LABS: CREATININE 1.78 mg/dL (0.55-1.02); POTASSIUM 4.4 mmol/L (3.5-5.1); TOTAL PROTEIN 5.3 gm/dL (6.4-8.2)
[2022-04-09 06:56] LABS: INTERNATIONAL NORM RATIO > 9.6 (2.0-3.5)
[2022-04-09 07:56] LABS: MANUAL DIFF REFLEX YES
[2022-04-09 08:00] VITALS: BP 102/54
[2022-04-09 08:11] LABS: TOTAL CELLS COUNTED 100 #CELLS; TOXIC GRANULATION MODERATE
[2022-04-09 08:12] LABS: BURR CELLS FEW; PLATELET SUFFICIENCY LOW (NORMAL)
[2022-04-09 12:05] VITALS: BP 125/88
== END 2022-04-09 16:34 | DRG 391 ==
LOC: ED 13:11 → EDHOLD 15:25 → 4E 15:25 → EDHOLD 16:11 → 4E 18:32
PROVIDERS: Emergency Medicine; Internal Medicine; Student in an Organized Health Care Education/Training Program; ADMIT Family Medicine; ATTEND Family Medicine
PROC: 30233R1 Transfusion of Nonautologous Platelets into Peripheral Vein, Percutaneous Approach (ICD-10-PCS; 2022-04-05)
PROC: 0BH17EZ Insertion of Endotracheal Airway into Trachea, Via Natural or Artificial Opening (ICD-10-PCS; principal; 2022-04-09)
PROC: 5A12012 Performance of Cardiac Output, Single, Manual (ICD-10-PCS; 2022-04-09)
DX: K52.9 Noninfective gastroenteritis and colitis, unspecified (principal); N17.0 Acute kidney failure with tubular necrosis; E43 Unspecified severe protein-calorie malnutrition; D61.810 Antineoplastic chemotherapy induced pancytopenia; D68.9 Coagulation defect, unspecified; E87.1 Hypo-osmolality and hyponatremia; E87.2 Acidosis; E86.0 Dehydration; T45.1X5A Adverse effect of antineoplastic and immunosuppressive drugs, initial encounter; I46.9 Cardiac arrest, cause unspecified; E87.6 Hypokalemia; E03.9 Hypothyroidism, unspecified; J44.9 Chronic obstructive pulmonary disease, unspecified; R79.89 Other specified abnormal findings of blood chemistry; E83.42 Hypomagnesemia; E83.51 Hypocalcemia; D64.9 Anemia, unspecified; D72.819 Decreased white blood cell count, unspecified; C50.919 Malignant neoplasm of unspecified site of unspecified female breast; D69.6 Thrombocytopenia, unspecified; K12.31 Oral mucositis (ulcerative) due to antineoplastic therapy; Z88.2 Allergy status to sulfonamides; Z82.49 Family history of ischemic heart disease and other diseases of the circulatory system; Z83.6 Family history of other diseases of the respiratory system; Z85.3 Personal history of malignant neoplasm of breast; Z86.12 Personal history of poliomyelitis; Z68.25 Body mass index [BMI] 25.0-25.9, adult